=== PATIENT | female | born 1980 | race Caucasian/White ===

== ENCOUNTER → 2021-01-04 | Outpatient (CLI) | payer BC, OTHER ==
[~2021-01-04] MED LIST: AMOXICILLIN875 MG PO; ASPIRIN EC81 M1 PO; AUGMENTIN 875-1 EACH PO; AUGMENTIN 875875 M1 PO; CARVEDILOL25 MG PO; CIPRO500 MG PO; FLAGYL500 MG PO; GLUMETZA500 PO; HYDROCODONE-AP1 EAC6 PO; LISINOPRIL5 MG PO; MAGNESIUM250 M1 PO; NITROFURANTOIN100 MG PO; NORCO 5-325 TA1 EACH PO; PHENERGAN 25 MG25 M1 PO; PYRIDIUM200 MG PO; ZOFRAN ODT4 MG PO; ZYRTEC10 M4 PO
== END ==
LOC: SJCVC 08:36 → SJCVCIMAG 08:43 → SJCVC 15:29
PROVIDERS: ATTEND Internal Medicine
DX: I08.1 Rheumatic disorders of both mitral and tricuspid valves (principal)